=== PATIENT | female | born 1975 | race Asian ===

== ENCOUNTER 2018-06-26 07:36 | Outpatient (CLI) | payer OTHER ==
--- NOTE | 2018-06-26 10:17 | CT ---
CT OF ABDOMEN AND PELVIS PERFORMED WITHOUT CONTRAST ENHANCEMENT: HISTORY: Renal calculus. History of urinary tract infection. COMPARISON: An ultrasound examination of 06/14/18. FINDINGS: The lung bases are clear of any infiltrative process. Liver, spleen, pancreas, and gallbladder regions all appear unremarkable. Right and left adrenal glands are normal. Right and left kidneys are normal in size. Increased atte nuation in the region of the calyces would suggest the possibility that this represents some changes of medullary sponge kidney. There is a lower pole left renal calculus measuring in the 5 mm range. There is no obstruction or ureteral calculi. No significant periaortic or mesenteric adenopathy. CT OF PELVIS PERFORMED WITHOUT CONTRAST ENHANCEMENT: The bladder is mildly distended on this exam. Appendix is normal. No adenopathy or mass. No free f luid. IMPRESSION: 1. A 5 mm lower pole nonobstructing left renal calculus. 2. 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 POS: [facility]
== END 2018-06-26 07:37 | disposition home or self-care (01) ==
LOC: SCSCT 07:36
PROVIDERS: ATTEND Urology
DX: N39.0 Urinary tract infection, site not specified (principal); R35.0 Frequency of micturition; N20.0 Calculus of kidney
CPT/HCPCS: 74176